=== PATIENT | male | born 1955 | race Caucasian/White ===

== ENCOUNTER 2020-06-06 11:48 | Inpatient (IN) | payer MEDICARE ==
[~2020-06-06] VITALS: Ht 185.4 cm; Wt 114.0 kg
[2020-06-06 13:05] LABS: HEMOGLOBIN 13.5 gm/dl (14.0-17.5); RED BLOOD COUNT 4.43 M/UL (4.20-5.50); WHITE BLOOD COUNT 3.6 K/UL (4.5-11.0)
[2020-06-06] MEDS ORDERED: ENTRESTO 24 MG1 EACH PO (16:44)
[2020-06-06] MEDS ORDERED: COREG6.25 MG PO (16:44)
[2020-06-06] MEDS ORDERED: ZYLOPRIM 300 M300 MG PO (16:44)
[2020-06-06] MEDS ORDERED: LIPITOR40 MG PO (16:45)
[2020-06-06] MEDS ORDERED: SOTALOL80 MG PO (16:45)
[2020-06-06] MEDS ORDERED: LASIX80 MG PO (16:45)
[2020-06-06] MEDS ORDERED: PLAVIX 75 MG TA75 MG PO (16:46)
[2020-06-06] MEDS ORDERED: ASPIRIN EC81 MG PO (16:46)
[2020-06-06] MEDS ORDERED: ALDACTONE25 MG PO (16:46)
[2020-06-06] MEDS ORDERED: CO Q-10100 MG PO (16:47)
[2020-06-07 04:14] LABS: HEMOGLOBIN 13.1 gm/dl (14.0-17.5); RED BLOOD COUNT 4.28 M/UL (4.20-5.50); WHITE BLOOD COUNT 3.6 K/UL (4.5-11.0)
[2020-06-07 04:57] LABS: BUN/CREATININE RATIO 28 (0-10)
[2020-06-08 03:32] LABS: HEMOGLOBIN 13.5 gm/dl (14.0-17.5); RED BLOOD COUNT 4.38 M/UL (4.20-5.50); WHITE BLOOD COUNT 4.3 K/UL (4.5-11.0)
[2020-06-08 03:56] LABS: BUN/CREATININE RATIO 34 (0-10)
[2020-06-09 03:58] LABS: RED BLOOD COUNT 4.58 M/UL (4.20-5.50); WHITE BLOOD COUNT 5.6 K/UL (4.5-11.0)
[2020-06-09 04:20] LABS: BUN/CREATININE RATIO 35 (0-10)
[2020-06-10 02:17] LABS: HEMOGLOBIN 14.4 gm/dl (14.0-17.5); RED BLOOD COUNT 4.76 M/UL (4.20-5.50); WHITE BLOOD COUNT 5.6 K/UL (4.5-11.0)
[2020-06-10 02:50] LABS: BUN/CREATININE RATIO 37 (0-10)
[2020-06-13 06:38] LABS: HEMOGLOBIN 14.4 gm/dl (14.0-17.5); RED BLOOD COUNT 4.73 M/UL (4.20-5.50); WHITE BLOOD COUNT 7.9 K/UL (4.5-11.0)
[2020-06-13 06:47] LABS: BUN/CREATININE RATIO 32 (0-10)
--- NOTE | 2020-06-13 23:27 | NUR ---
APPROX. 192: TRIED TO NOTIFY OF PT'S O2 DROPPING AND THE NEED FOR A TITRATION ORDER. NO ANSWER. NO NEW ORDERS OBTAINED. SEE PROVIDER NOTIFICATION. APPROX. 1952: NOTIFIED OF PT'S O2 DROPPING AND THE NEED FOR A TITRATION ORDER. SEE PROVIDER NOTIFCATION. APPROX. 2014: PT TITRATED TO 60L @ 90% ON AIRVO. APPROX. 2099: TRIED TO NOTIFY OF PT'S CONDITION AND O2 DROPPING. NO ANSWER. NO NEW ORDERS OBTAINED. SEE PROVIDER NOTIFICATION. APPROX. 2099: PT MAXED OUT ON AIRVO. PT TITRATED TO 60L @ 93%. APPROX. 2106: NOTIFIED OF PT'S CONDITION AND O2 DROPPING. NOTIFIED THAT THE PT WAS CURRENTLY MAXED OUT ON AIRVO. PT WAS ON 60L @ 93%. PT'S O2 SATURATION WAS STAYING BETWEEN 88%-91% ON THAT. WANTED THE PT PLACED ON CPAP IF THE PT STARTED TO DROP MORE. AGREED TO TRANSFER THE PT TO PCU. SEE PROVIDER NOTIFICATIONS. APPROX. 2117: HOUSE (ANIKA) CALLED ME TO NOTIFY ME THAT THE PT WOULD BE GOING TO ROOM 6120 SOON IT WAS CLEANED. APPROX. 2121: TRIED TO CALL PCU TO CALL REPORT. NO ANSWER. APPROX. 2145: TRIED TO CALL PCU TO CALL REPORT. NO ANSWER. APPROX. 2205: TRIED TO CALL PCU TO CALL REPORT. NO ANSWER. APPROX. 2219: REPORT WAS CALLED TO CHERIE IN PCU. APPROX. 225: RESOURCE RN (VIDHI) AND RESPIRATORY TRANSFERRED PT TO PCU ROOM 6122. PT WAS STABLE. NO DISTRESS NOTED.
[2020-06-14 03:25] LABS: HEMOGLOBIN 15.4 gm/dl (14.0-17.5); RED BLOOD COUNT 5.11 M/UL (4.20-5.50); WHITE BLOOD COUNT 9.5 K/UL (4.5-11.0)
[2020-06-14 03:48] LABS: BUN/CREATININE RATIO 35 (0-10)
[2020-06-15 03:55] LABS: HEMOGLOBIN 15.1 gm/dl (14.0-17.5); RED BLOOD COUNT 4.94 M/UL (4.20-5.50); WHITE BLOOD COUNT 9.1 K/UL (4.5-11.0)
[2020-06-15 04:18] LABS: BUN/CREATININE RATIO 40 (0-10)
--- NOTE | 2020-06-16 05:30 | NUR ---
0530- PATIENT SHOWS 77% OXYGEN SATURATION ON THE MONITOR. UPON ARRIVAL TO ROOM PATIENT HAD PULLED CPAP OFF AND PUT AIRVO ON AND WAS TACHYPNEIC WITH RR IN THE 40'S AND O2 SAT OF 77%. I ASKED PATIENT HOW HE FELT AND HE STATED "I NEED AIR". AIRVO WAS REMOVED AND CPAP WAS REAPPLIED AT THIS TIME. AFTER APPROX. 2-3 MINUTES PATIENT HAD NOT INCREASED PAST 80% ON CPAP. RESPIRATORY THERAPIST WAS CALLED AT THIS TIME. RESPIRATORY THERAPIST AND I TRIED MULTIPLE MODES AND SETTINGS TO INCREASE O2 SAT, INCLUDING BIPAP WITH FIO2 OF 100% AND WAS UNBALE TO GET O2 SAT TO GET ABOVE 81%. RESPIRATIONS HAD SLOWED TO 25-30 AND PATIENT SAID HE FELT SOMEWHAT NOT SHORT OF BREATH BUT DESPITE ALL MEASURES O2 SAT WAS NOT ABLE TO GET ABOVE 81%. 0603- AT THIS TIME I CHOSE TO CONTACT TO GET FURTHER ORDERS. IT WAS COMMUNICATED TO MD THAT PATIENT BECAME VERY SOB SUDDENLY AND O2 SAT IS NOT ABLE TO GET ABOVE 81% EVEN WITH A FIO2 OF 100%. MD ORDERS RECIEVED FOR STAT ABG, TO PUT PATIENT ON BIPAP WITH SETTINGS INCLUDING A FIO2 OF 100% AND TO OBTAIN A CXR STAT. 0615- STAT CHEST XRAY SHOWS PNEUMOTHORAX TO RIGHT SIDE OF CHEST. MD CONTACT AT THIS TIME AND MD STATED HE WOULD BE THERE TO SEE CXR AND ASSESS PATIENT. 06- MD ARRIVAL TO FLOOR TO ASSESS CXR AND ER MD (DR. ANTOINE) WAS CONTACTED ABOUT PNEUMOTHORAX BY AT THIS TIME. NÉSTOR SAID HE WOULD BE UP SHORTLY TO INSERT CHEST TUBE FOR REINFLATION OF THE LUNG. 0625- F/C INSERTED WITH ORDER FROM AND NEW #18 G IV INSERTED TO . . 0630- NÉSTOR ARRIVAL TO FLOOR FOR INSERTION OF CHEST TUBE. CONSENTS HAD BEEN OBTAINED PRIOR TO THIS AND UNIVERSAL PROTOCOL SHEET FILLED OUT. AT THIS TIME MD BEGAN INSERTION OF CHEST TUBE. 1901- XRAY IN ROOM FOR VERIFICATION OF CHEST TUBE PLACEMENT. XRAY SHOWS REINFLATION OF LUNG. PATIENT HAS AIRVO ON AT THIS TIME AND O2 SAT AT 87%. PATIENT RR IS NOW 24 AND NO ACUTE DISTRESS IS NOTED. CHEST TUBE [employer]BER WAS SECURED TO FLOOR AND TUBE WAS SECURED TO CHEST WITH GAUZE AND FOAM TAPE.
--- NOTE | 2020-06-16 11:24 | NUR ---
PT TRANSFERRED TO ICU PER MD ORDER, PT STABLE AT TIME OF TRANSFER ON BIPAP, TRANSPORTED BY RN AND RESPIRATORY THERAPIST
[2020-06-17 03:56] LABS: HEMOGLOBIN 16.8 gm/dl (14.0-17.5); RED BLOOD COUNT 5.46 M/UL (4.20-5.50)
[2020-06-17 04:13] LABS: BUN/CREATININE RATIO 50 (0-10)
[2020-06-18 03:52] LABS: HEMOGLOBIN 16.1 gm/dl (14.0-17.5); RED BLOOD COUNT 5.26 M/UL (4.20-5.50)
[2020-06-19 04:23] LABS: HEMOGLOBIN 13.3 gm/dl (14.0-17.5); RED BLOOD COUNT 4.36 M/UL (4.20-5.50); WHITE BLOOD COUNT 17.1 K/UL (4.5-11.0)
[2020-06-20 04:28] LABS: HEMOGLOBIN 13.3 gm/dl (14.0-17.5); RED BLOOD COUNT 4.49 M/UL (4.20-5.50); WHITE BLOOD COUNT 15.3 K/UL (4.5-11.0)
[2020-06-21 04:53] LABS: HEMOGLOBIN 14.3 gm/dl (14.0-17.5); RED BLOOD COUNT 4.73 M/UL (4.20-5.50); WHITE BLOOD COUNT 17.2 K/UL (4.5-11.0)
[2020-06-22 04:59] LABS: HEMOGLOBIN 12.6 gm/dl (14.0-17.5); WHITE BLOOD COUNT 13.9 K/UL (4.5-11.0)
[2020-06-22 05:02] LABS: RED BLOOD COUNT 4.19 M/UL (4.20-5.50)
[2020-06-22 05:22] LABS: BUN/CREATININE RATIO 73 (0-10)
[2020-06-23 06:51] LABS: HEMOGLOBIN 13.1 gm/dl (14.0-17.5); RED BLOOD COUNT 4.35 M/UL (4.20-5.50); WHITE BLOOD COUNT 15.2 K/UL (4.5-11.0)
[2020-06-23 16:45] LABS: BUN/CREATININE RATIO 79 (0-10)
[2020-06-24 06:47] LABS: HEMOGLOBIN 11.9 gm/dl (14.0-17.5); RED BLOOD COUNT 4.05 M/UL (4.20-5.50); WHITE BLOOD COUNT 12.8 K/UL (4.5-11.0)
[2020-06-24 07:17] LABS: BUN/CREATININE RATIO 71 (0-10)
[2020-06-24 18:49] LABS: BUN/CREATININE RATIO 72 (0-10)
[2020-06-25 05:38] LABS: HEMOGLOBIN 11.3 gm/dl (14.0-17.5); RED BLOOD COUNT 3.68 M/UL (4.20-5.50); WHITE BLOOD COUNT 10.4 K/UL (4.5-11.0)
[2020-06-25 06:17] LABS: BUN/CREATININE RATIO 72 (0-10)
[2020-06-26 05:19] LABS: HEMOGLOBIN 10.7 gm/dl (14.0-17.5); RED BLOOD COUNT 3.5 M/UL (4.20-5.50); WHITE BLOOD COUNT 8.2 K/UL (4.5-11.0)
[2020-06-26 05:36] LABS: BUN/CREATININE RATIO 55 (0-10)
[2020-06-27 04:50] LABS: RED BLOOD COUNT 3.3 M/UL (4.20-5.50)
[2020-06-27 05:07] LABS: BUN/CREATININE RATIO 42 (0-10)
[2020-06-28 04:59] LABS: RED BLOOD COUNT 3.28 M/UL (4.20-5.50); WHITE BLOOD COUNT 4.9 K/UL (4.5-11.0)
[2020-06-28 05:31] LABS: BUN/CREATININE RATIO 48 (0-10)
[2020-06-28 17:08] LABS: HEPARIN INDUCED PLATELET AB 0.111 OD (0.000-0.400)
[2020-06-29 03:52] LABS: HEMOGLOBIN 8.4 gm/dl (14.0-17.5); WHITE BLOOD COUNT 5.4 K/UL (4.5-11.0)
[2020-06-29 03:54] LABS: RED BLOOD COUNT 2.75 M/UL (4.20-5.50)
[2020-06-29 04:29] LABS: BUN/CREATININE RATIO 50 (0-10)
[2020-06-30 03:28] LABS: HEMOGLOBIN 9.4 gm/dl (14.0-17.5); WHITE BLOOD COUNT 6.3 K/UL (4.5-11.0)
[2020-06-30 03:31] LABS: RED BLOOD COUNT 3.13 M/UL (4.20-5.50)
[2020-06-30 04:00] LABS: BUN/CREATININE RATIO 54 (0-10)
[2020-07-01 05:04] LABS: HEMOGLOBIN 8.8 gm/dl (14.0-17.5); RED BLOOD COUNT 3.04 M/UL (4.20-5.50)
[2020-07-01 05:09] LABS: WHITE BLOOD COUNT 8.5 K/UL (4.5-11.0)
[2020-07-01 05:18] LABS: BUN/CREATININE RATIO 48 (0-10)
--- NOTE | 2020-07-01 18:20 | NUR ---
SEE NOTE IN CHART FOR A LIST OF PATIENT BELONGINGS SENT WITH PTS BODY TO [facility] PER WISHES.
== END 2020-07-01 16:00 | disposition expired | DRG 207 ==
LOC: ER1 11:48 → MED SURG 4 15:16 → CDU 15:16 → PROG CARE 15:16 → CCU 15:16 → MED SURG 4 22:06 → PROG CARE 06-13 22:26 → CCU 06-16 11:06
PROVIDERS: Emergency Medicine; Internal Medicine; Internal Medicine Nephrology; Internal Medicine Pulmonary Disease; ADMIT Family Medicine
PROC: 8E0ZXY6 Isolation (ICD-10-PCS; 2020-06-06)
PROC: XW033E5 Introduction of Remdesivir Anti-infective into Peripheral Vein, Percutaneous Approach, New Technology Group 5 (ICD-10-PCS; 2020-06-06)
PROC: XW13325 Transfusion of Convalescent Plasma (Nonautologous) into Peripheral Vein, Percutaneous Approach, New Technology Group 5 (ICD-10-PCS; 2020-06-06)
PROC: 5A09457 Assistance with Respiratory Ventilation, 24-96 Consecutive Hours, Continuous Positive Airway Pressure (ICD-10-PCS; 2020-06-14)
PROC: 0W9930Z Drainage of Right Pleural Cavity with Drainage Device, Percutaneous Approach (ICD-10-PCS; principal; 2020-06-16)
PROC: 5A1955Z Respiratory Ventilation, Greater than 96 Consecutive Hours (ICD-10-PCS; 2020-06-17)
PROC: 0BH17EZ Insertion of Endotracheal Airway into Trachea, Via Natural or Artificial Opening (ICD-10-PCS; 2020-06-17)
PROC: 02HV33Z Insertion of Infusion Device into Superior Vena Cava, Percutaneous Approach (ICD-10-PCS; 2020-06-17)
PROC: B548ZZA Ultrasonography of Superior Vena Cava, Guidance (ICD-10-PCS; 2020-06-17)
PROC: 0W9930Z Drainage of Right Pleural Cavity with Drainage Device, Percutaneous Approach (ICD-10-PCS; 2020-06-18)
PROC: 0BC78ZZ Extirpation of Matter from Left Main Bronchus, Via Natural or Artificial Opening Endoscopic (ICD-10-PCS; 2020-06-18)
PROC: 0DH67UZ Insertion of Feeding Device into Stomach, Via Natural or Artificial Opening (ICD-10-PCS; 2020-06-18)
PROC: 3E0G76Z Introduction of Nutritional Substance into Upper GI, Via Natural or Artificial Opening (ICD-10-PCS; 2020-06-18)
DX: U07.1 COVID-19 (principal); J12.82 Pneumonia due to coronavirus disease 2019; J96.01 Acute respiratory failure with hypoxia; J80 Acute respiratory distress syndrome; A41.9 Sepsis, unspecified organism; R65.21 Severe sepsis with septic shock; J15.4 Pneumonia due to other streptococci; J93.0 Spontaneous tension pneumothorax; I50.22 Chronic systolic (congestive) heart failure; N17.9 Acute kidney failure, unspecified; D61.818 Other pancytopenia; E87.2 Acidosis; E87.0 Hyperosmolality and hypernatremia; E87.3 Alkalosis; Z51.5 Encounter for palliative care; D69.6 Thrombocytopenia, unspecified; R57.1 Hypovolemic shock; R04.0 Epistaxis; J98.01 Acute bronchospasm; R34 Anuria and oliguria; E83.42 Hypomagnesemia; E87.5 Hyperkalemia; R50.9 Fever, unspecified; Z66 Do not resuscitate; E11.9 Type 2 diabetes mellitus without complications; D53.9 Nutritional anemia, unspecified; E87.6 Hypokalemia; I25.10 Atherosclerotic heart disease of native coronary artery without angina pectoris; R74.01 Elevation of levels of liver transaminase levels; I25.5 Ischemic cardiomyopathy; I48.0 Paroxysmal atrial fibrillation; E78.5 Hyperlipidemia, unspecified; I11.0 Hypertensive heart disease with heart failure; R00.0 Tachycardia, unspecified; M10.9 Gout, unspecified; Z87.891 Personal history of nicotine dependence; Z95.1 Presence of aortocoronary bypass graft; Z79.899 Other long term (current) drug therapy; Z95.810 Presence of automatic (implantable) cardiac defibrillator; Z79.01 Long term (current) use of anticoagulants; Z95.2 Presence of prosthetic heart valve
CPT/HCPCS: ECHO; 31500; 36415; 36600; 71045; 71046; 80048; 80053; 80202; 81001; 82436; 82550; 82553; 82570; 82728; 82803; 82962; 83036; 83605; 83615; 83690; 83735; 83880; 84100; 84132; 84133; 84300; 84484; 85025; 85027; 85379; 85384; 85610; 86140; 86900; 86901; 86927; 87040; 87070; 87077; 87081; 87086; 87186; 87205; 93005; 93306; 93970; 94003; 94640; 94660; 94664; 94760; 96365; 96366; 96375; 99285; A6212; C1751; J0330; J0456; J0610; J1100; J1205; J1335; J1650; J1940; J2185; J2250; J2370; J2704; J2920; J3010; J3370; J7030; J7040; J7050; J7070; P9047; U0002